=== PATIENT | female | born 1945 | race Caucasian/White ===

== ENCOUNTER 2023-03-23 16:20 | Inpatient (IN) | payer MEDICARE ==
[~2023-03-23] VITALS: Ht 175.3 cm; Wt 79.0 kg
[2023-03-23 22:00] VITALS: BP 121/51; PULSE 107; RESP 20; TEMP 97.5; O2SAT 96
[2023-03-23] MEDS ORDERED: furosemide 20 MG/2 ML vial IV ONE (23:40)
[2023-03-23] MEDS ORDERED: ondansetron/PF 4mg/2ml inj IV PRN (23:40)
[2023-03-23] MEDS ORDERED: potassium Cl 40MEQ/1/2NS 520ml 520 ML IV PRN (23:40)
[2023-03-23] MEDS ORDERED: magnesium Cl slow-release 64mg tablet PO PRN (23:40)
[2023-03-23] MEDS ORDERED: bisacodyl 10mg suppository rectal RC PRN (23:40)
[2023-03-23] MEDS ORDERED: acetaminophen 650mg rectal suppository RC PRN (23:40)
[2023-03-23] MEDS ORDERED: acetaminophen 325mg tablet PO PRN ×2 (23:40)
[2023-03-23] MEDS ORDERED: HYDROcodone/acetaminophen 5mg/325mg tablet PO PRN (23:40)
[2023-03-23] MEDS ORDERED: potassium Cl 20 mEq SR tablet PO PRN ×2 (23:40)
[2023-03-23] MEDS ORDERED: magnesium 4gm in 100ml NS 100 ML IV PRN (23:40)
[2023-03-23] MEDS ORDERED: mag hydrox/Alum hydrox/simeth 30ml oral suspension PO PRN (23:40)
[2023-03-23] MEDS ORDERED: magnesium 2GM in 50ml NS 50 ML IV PRN (23:40)
[2023-03-23] MEDS ORDERED: morphine 2 MG/ML inj. syringe IV PRN ×2 (23:40)
[2023-03-24 02:00] VITALS: BP 144/62; PULSE 104; RESP 20; TEMP 97.8; O2SAT 100
[2023-03-24] MEDS: normal saline 1000ml 1,000 ML IV SCH ×2 (03:00→15:46)
[2023-03-24] MEDS: temazepam 15mg capsule PO PRN ×2 (03:43→23:19)
[2023-03-24 06:00] VITALS: BP 118/71; PULSE 112; RESP 17; TEMP 98.2; O2SAT 95
[2023-03-24 06:46] LABS: BASOPHILS # (AUTO) 0.1 X10'3 (0-0.2); BASOPHILS % (AUTO) 0.3 % (0-1); EOSINOPHILS % (AUTO) 0.2 % (0-6); HEMATOCRIT 25.8 % (35.0-45.0); HEMOGLOBIN 8.5 g/dl (12.0-16.0); LYMPHOCYTES # (AUTO) 1.3 X10'3 (1.1-4.8); MEAN CORPUSCULAR HEMOGLOBIN 32.6 PG (27.0-31.0); MEAN CORPUSCULAR HGB CONC 32.9 g/dL (33.0-36.5); MEAN CORPUSCULAR VOLUME 99.3 FL (78-98); MEAN PLATELET VOLUME 8.3 FL (7.4-10.4); MONOCYTES # (AUTO) 1.4 X10'3 (0-0.9); MONOCYTES % (AUTO) 7.6 % (2-12); NEUTROPHILS # (AUTO) 16.1 X10'3 (1.8-7.7); NEUTROPHILS % (AUTO) 84.9 % (42-75); PLATELET COUNT 239 X10'3 (140-440); RED CELL DISTRIBUTION WIDTH 15.2 % (11.5-14.5); WHITE BLOOD COUNT 18.9 X10'3 (4.5-11.0)
[2023-03-24 07:07] LABS: ALANINE AMINOTRANSFERASE 14 U/L (12-78); ALBUMIN 2.7 G/DL (3.4-5.0); ALKALINE PHOSPHATASE 84 IU/L (46-116); ANION GAP 8 (8-16); ASPARTATE AMINO TRANSFERASE 13 U/L (10-37); BILIRUBIN,TOTAL 0.5 MG/DL (0.1-1.0); BLOOD UREA NITROGEN 20 MG/DL (7-18); BUN/CREATININE RATIO 17.5 (10.0-20.0); C-REACTIVE PROTEIN 3.55 MG/DL (0.0-0.5); CALCIUM 8.4 MG/DL (8.5-10.1); CHLORIDE 109 MMOL/L (99-107); CREATININE 1.14 MG/DL (0.40-0.90); GLUCOSE 78 MG/DL (70-104); MAGNESIUM 1.8 MG/DL (1.5-2.4); POTASSIUM 3.7 MMOL/L (3.5-5.1); SODIUM 147 MMOL/L (135-145); TOTAL CARBON DIOXIDE 29.6 MMOL/L (24-32); TOTAL PROTEIN 5.5 G/DL (6.4-8.2); eCRCL 43 ML/MIN; eGFR 46 ML/MIN
[2023-03-24] MEDS: K and/or MAG REPLACEMENT MC SCH ×2 (08:00→19:58)
[2023-03-24] MEDS: docusate sod 100mg capsule PO SCH ×2 (08:00→19:57)
[2023-03-24] MEDS ORDERED: VANCOmycin 1250MG/NS 250ml Bag 250 ML IV SCH (08:00)
[2023-03-24] MEDS ORDERED: CefTRIAXone 2gm/D5W 50ml BAG 50 ML IV SCH (08:00)
[2023-03-24] MEDS ORDERED: vancomycin/NS 1 GM ADD-VANTAGE 250 ML IV SCH (09:00)
[2023-03-24] MEDS: enoxaparin 40mg/0.4ml syringe SUBCUT SCH (10:27)
[2023-03-24 11:00] VITALS: BP 134/68
[2023-03-24 11:19] LABS: NUCLEATED RED BLOOD CELLS 1 /100WBC (0-0); TOTAL CELLS COUNTED 100
[2023-03-24 11:20] LABS: PLATELET ESTIMATE NORMAL
[2023-03-24 11:31] LABS: STOMATOCYTES 1+
[2023-03-24 11:32] LABS: HYPOCHROMASIA 1+
[2023-03-24] MEDS: piperacillin/tazo 3.375gm/50ml 50 ML IV SCH ×3 (11:48→23:23)
[2023-03-24 15:00] VITALS: BP 139/62; PULSE 101; RESP 18; TEMP 97.4; O2SAT 99
[2023-03-24 18:00] VITALS: BP 128/64; PULSE 100; RESP 18; TEMP 97.6; O2SAT 98
[2023-03-24 22:00] VITALS: BP 132/68; PULSE 100; RESP 18; TEMP 98; O2SAT 98
[2023-03-24] MEDS ORDERED: diatr meglu/diatrizoate 30ml oral sol.-(3 dose) bottle NG ONE (22:00)
[2023-03-24] MEDS: HYDROcodone/acetaminophen 10/325mg tab PO PRN (23:20)
[2023-03-25 02:00] VITALS: BP 129/67; PULSE 100; RESP 18; TEMP 97.8; O2SAT 98
[2023-03-25 06:06] VITALS: BP 138/64; PULSE 94; RESP 14; TEMP 97.7; O2SAT 98
[2023-03-25] MEDS: K and/or MAG REPLACEMENT MC SCH ×2 (08:00→20:00)
[2023-03-25] MEDS: enoxaparin 40mg/0.4ml syringe SUBCUT SCH (08:04)
[2023-03-25] MEDS: docusate sod 100mg capsule PO SCH ×2 (08:04→20:10)
[2023-03-25] MEDS: normal saline 1000ml 1,000 ML IV SCH ×2 (08:05→15:40)
[2023-03-25] MEDS: piperacillin/tazo 3.375gm/50ml 50 ML IV SCH ×3 (08:05→23:16)
[2023-03-25 12:44] LABS: BASOPHILS # (AUTO) 0.2 X10'3 (0-0.2); BASOPHILS % (AUTO) 1.1 % (0-1); EOSINOPHILS # (AUTO) 0.1 X10'3 (0-0.9); EOSINOPHILS % (AUTO) 0.6 % (0-6); HEMATOCRIT 26.3 % (35.0-45.0); HEMOGLOBIN 8.5 g/dl (12.0-16.0); LYMPHOCYTES # (AUTO) 0.9 X10'3 (1.1-4.8); LYMPHOCYTES % (AUTO) 6.5 % (21-51); MEAN CORPUSCULAR HEMOGLOBIN 33.1 PG (27.0-31.0); MEAN CORPUSCULAR HGB CONC 32.2 g/dL (33.0-36.5); MEAN CORPUSCULAR VOLUME 102.9 FL (78-98); MEAN PLATELET VOLUME 8.1 FL (7.4-10.4); MONOCYTES # (AUTO) 0.6 X10'3 (0-0.9); MONOCYTES % (AUTO) 4.4 % (2-12); NEUTROPHILS # (AUTO) 12.3 X10'3 (1.8-7.7); NEUTROPHILS % (AUTO) 87.4 % (42-75); PLATELET COUNT 169 X10'3 (140-440); RED BLOOD COUNT 2.56 X10'6 (4.20-5.60); WHITE BLOOD COUNT 14.1 X10'3 (4.5-11.0)
[2023-03-25 18:00] VITALS: BP 118/67; PULSE 102; RESP 18; TEMP 98; O2SAT 100
[2023-03-25] MEDS ORDERED: VANCOMYCIN LEVEL IV ONE (20:30)
[2023-03-25 20:54] LABS: ALANINE AMINOTRANSFERASE 9 U/L (12-78); ALBUMIN/GLOBULIN RATIO 0.7 (1.1-1.5); ALKALINE PHOSPHATASE 89 IU/L (46-116); ANION GAP 5 (8-16); ASPARTATE AMINO TRANSFERASE 12 U/L (10-37); BILIRUBIN,TOTAL 0.4 MG/DL (0.1-1.0); BLOOD UREA NITROGEN 18 MG/DL (7-18); BUN/CREATININE RATIO 16.2 (10.0-20.0); CHLORIDE 110 MMOL/L (99-107); CREATININE 1.11 MG/DL (0.40-0.90); GLUCOSE 88 MG/DL (70-104); MAGNESIUM 1.6 MG/DL (1.5-2.4); POTASSIUM 3.2 MMOL/L (3.5-5.1); SODIUM 148 MMOL/L (135-145); TOTAL CARBON DIOXIDE 33.1 MMOL/L (24-32); VANCOMYCIN,TROUGH 14.8 ug/mL (10.0-20.0); eCRCL 44 ML/MIN; eGFR 48 ML/MIN
[2023-03-25 22:00] VITALS: BP 124/62; PULSE 100; RESP 18; TEMP 97.8; O2SAT 100
[2023-03-25] MEDS: temazepam 15mg capsule PO PRN (22:47)
[2023-03-25] MEDS: HYDROcodone/acetaminophen 10/325mg tab PO PRN (22:47)
[2023-03-26 02:00] VITALS: BP 128/60; PULSE 105; RESP 18; TEMP 97.6; O2SAT 100
[2023-03-26] MEDS: normal saline 1000ml 1,000 ML IV SCH (05:00)
[2023-03-26 06:00] VITALS: BP 113/58; PULSE 68; RESP 20; TEMP 97.4; O2SAT 98
[2023-03-26] MEDS: docusate sod 100mg capsule PO SCH ×2 (07:27→20:41)
[2023-03-26] MEDS: K and/or MAG REPLACEMENT MC SCH ×2 (07:28→20:00)
[2023-03-26] MEDS: enoxaparin 40mg/0.4ml syringe SUBCUT SCH (07:28)
[2023-03-26] MEDS: piperacillin/tazo 3.375gm/50ml 50 ML IV SCH ×2 (07:28→17:14)
[2023-03-26 07:50] LABS: BASOPHILS % (AUTO) 0.2 % (0-1); EOSINOPHILS # (AUTO) 0.1 X10'3 (0-0.9); EOSINOPHILS % (AUTO) 0.6 % (0-6); HEMATOCRIT 26.5 % (35.0-45.0); HEMOGLOBIN 8.6 g/dl (12.0-16.0); LYMPHOCYTES # (AUTO) 0.9 X10'3 (1.1-4.8); LYMPHOCYTES % (AUTO) 8.1 % (21-51); MEAN CORPUSCULAR HEMOGLOBIN 32.8 PG (27.0-31.0); MEAN CORPUSCULAR HGB CONC 32.4 g/dL (33.0-36.5); MEAN CORPUSCULAR VOLUME 101.2 FL (78-98); MEAN PLATELET VOLUME 8.1 FL (7.4-10.4); MONOCYTES # (AUTO) 0.8 X10'3 (0-0.9); MONOCYTES % (AUTO) 7.6 % (2-12); NEUTROPHILS # (AUTO) 9.3 X10'3 (1.8-7.7); NEUTROPHILS % (AUTO) 83.5 % (42-75); PLATELET COUNT 179 X10'3 (140-440); RED BLOOD COUNT 2.62 X10'6 (4.20-5.60); RED CELL DISTRIBUTION WIDTH 15.4 % (11.5-14.5); WHITE BLOOD COUNT 11.2 X10'3 (4.5-11.0)
[2023-03-26 08:39] LABS: ALANINE AMINOTRANSFERASE 8 U/L (12-78); ALBUMIN/GLOBULIN RATIO 0.7 (1.1-1.5); ALKALINE PHOSPHATASE 85 IU/L (46-116); ANION GAP 6 (8-16); ASPARTATE AMINO TRANSFERASE 8 U/L (10-37); BILIRUBIN,TOTAL 0.4 MG/DL (0.1-1.0); BLOOD UREA NITROGEN 19 MG/DL (7-18); BUN/CREATININE RATIO 16.8 (10.0-20.0); CALCIUM 8.1 MG/DL (8.5-10.1); CHLORIDE 112 MMOL/L (99-107); CREATININE 1.13 MG/DL (0.40-0.90); GLUCOSE 94 MG/DL (70-104); MAGNESIUM 1.7 MG/DL (1.5-2.4); PHOSPHORUS 2.3 MG/DL (2.3-4.5); POTASSIUM 3.4 MMOL/L (3.5-5.1); SODIUM 148 MMOL/L (135-145); TOTAL CARBON DIOXIDE 30.1 MMOL/L (24-32); TOTAL PROTEIN 4.8 G/DL (6.4-8.2); eCRCL 44 ML/MIN; eGFR 47 ML/MIN
[2023-03-26 18:00] VITALS: BP_SYST 119; PULSE 103; RESP 20; TEMP 97.4; O2SAT 98
[2023-03-26] MEDS: HYDROcodone/acetaminophen 10/325mg tab PO PRN (20:40)
[2023-03-26] MEDS: temazepam 15mg capsule PO PRN (20:41)
[2023-03-26 22:00] VITALS: BP 117/58; PULSE 102; RESP 20; TEMP 97.1; O2SAT 98
[2023-03-27] MEDS: piperacillin/tazo 3.375gm/50ml 50 ML IV SCH ×4 (00:20→23:25)
[2023-03-27 02:00] VITALS: BP 122/62; PULSE 105; RESP 20; TEMP 97.6; O2SAT 98
[2023-03-27 06:06] VITALS: BP 158/78; PULSE 56; RESP 16; TEMP 98; O2SAT 98
[2023-03-27] MEDS: docusate sod 100mg capsule PO SCH ×2 (07:52→19:36)
[2023-03-27] MEDS: enoxaparin 40mg/0.4ml syringe SUBCUT SCH (07:55)
[2023-03-27] MEDS: K and/or MAG REPLACEMENT MC SCH ×2 (08:00→20:00)
[2023-03-27 09:05] LABS: BASOPHILS % (AUTO) 0.3 % (0-1); EOSINOPHILS # (AUTO) 0.1 X10'3 (0-0.9); EOSINOPHILS % (AUTO) 0.6 % (0-6); HEMATOCRIT 31.9 % (35.0-45.0); HEMOGLOBIN 10.1 g/dl (12.0-16.0); LYMPHOCYTES # (AUTO) 1.1 X10'3 (1.1-4.8); LYMPHOCYTES % (AUTO) 10.4 % (21-51); MEAN CORPUSCULAR HGB CONC 31.7 g/dL (33.0-36.5); MEAN PLATELET VOLUME 8.4 FL (7.4-10.4); NEUTROPHILS # (AUTO) 8.6 X10'3 (1.8-7.7); NEUTROPHILS % (AUTO) 79.7 % (42-75); PLATELET COUNT 158 X10'3 (140-440); RED BLOOD COUNT 3.07 X10'6 (4.20-5.60); RED CELL DISTRIBUTION WIDTH 16.4 % (11.5-14.5); WHITE BLOOD COUNT 10.8 X10'3 (4.5-11.0)
[2023-03-27 11:14] VITALS: BP 109/63; PULSE 117; RESP 21; TEMP 97.3; O2SAT 93
[2023-03-27 11:35] LABS: ALANINE AMINOTRANSFERASE 11 U/L (12-78); ALBUMIN 1.9 G/DL (3.4-5.0); ALBUMIN/GLOBULIN RATIO 0.6 (1.1-1.5); ALKALINE PHOSPHATASE 90 IU/L (46-116); ANION GAP 4 (8-16); ASPARTATE AMINO TRANSFERASE 11 U/L (10-37); BILIRUBIN,TOTAL 0.4 MG/DL (0.1-1.0); BLOOD UREA NITROGEN 19 MG/DL (7-18); BUN/CREATININE RATIO 17.4 (10.0-20.0); CALCIUM 8.3 MG/DL (8.5-10.1); CHLORIDE 111 MMOL/L (99-107); CREATININE 1.09 MG/DL (0.40-0.90); GLUCOSE 120 MG/DL (70-104); MAGNESIUM 1.6 MG/DL (1.5-2.4); PHOSPHORUS 2.1 MG/DL (2.3-4.5); POTASSIUM 4.4 MMOL/L (3.5-5.1); PREALBUMIN 12.9 MG/DL (19-36); SODIUM 147 MMOL/L (135-145); TOTAL CARBON DIOXIDE 31.7 MMOL/L (24-32); TOTAL PROTEIN 5.1 G/DL (6.4-8.2); eCRCL 45 ML/MIN; eGFR 49 ML/MIN
[2023-03-27 11:46] LABS: TOTAL CELLS COUNTED 100
[2023-03-27 11:49] LABS: ANISOCYTOSIS 1+; PLATELET ESTIMATE NORMAL; POLYCHROMASIA FEW
[2023-03-27] MEDS ORDERED: LOPERAMIDE 2 mg/15 ml oral solution UD PO PRN (13:10)
[2023-03-27 15:15] VITALS: BP 112/53; PULSE 120; RESP 20; TEMP 97.4; O2SAT 96
[2023-03-27 18:00] VITALS: BP 113/60; PULSE 117; RESP 18; TEMP 97.9; O2SAT 98
[2023-03-27] MEDS: HYDROcodone/acetaminophen 10/325mg tab PO PRN (19:36)
[2023-03-27] MEDS: temazepam 15mg capsule PO PRN (19:36)
[2023-03-27] MEDS: diatr meglu/diatrizoate 30ml oral sol.-(3 dose) bottle PO SCH (21:00)
[2023-03-27 22:00] VITALS: BP 96/55; PULSE 115; RESP 18; TEMP 97.6; O2SAT 93
[2023-03-28] VITALS (10 sets, daily range): BP systolic 109–132; BP diastolic 49–94; PULSE 93–112; RESP 13–29; TEMP 97.6–98.2; O2SAT 92–98
[2023-03-28] MEDS: diatr meglu/diatrizoate 30ml oral sol.-(3 dose) bottle PO SCH (07:00)
[2023-03-28] MEDS: piperacillin/tazo 3.375gm/50ml 50 ML IV SCH ×2 (07:24→16:00)
[2023-03-28] MEDS: docusate sod 100mg capsule PO SCH ×2 (07:30→20:13)
[2023-03-28] MEDS: K and/or MAG REPLACEMENT MC SCH ×2 (08:00→20:00)
[2023-03-28 08:02] LABS: BASOPHILS % (AUTO) 0.5 % (0-1); EOSINOPHILS # (AUTO) 0.1 X10'3 (0-0.9); EOSINOPHILS % (AUTO) 0.7 % (0-6); HEMATOCRIT 26.1 % (35.0-45.0); HEMOGLOBIN 8.4 g/dl (12.0-16.0); LYMPHOCYTES # (AUTO) 1.2 X10'3 (1.1-4.8); LYMPHOCYTES % (AUTO) 14.6 % (21-51); MEAN CORPUSCULAR HGB CONC 32.2 g/dL (33.0-36.5); MEAN CORPUSCULAR VOLUME 102.4 FL (78-98); MEAN PLATELET VOLUME 8.4 FL (7.4-10.4); MONOCYTES # (AUTO) 0.6 X10'3 (0-0.9); MONOCYTES % (AUTO) 6.8 % (2-12); NEUTROPHILS # (AUTO) 6.6 X10'3 (1.8-7.7); NEUTROPHILS % (AUTO) 77.4 % (42-75); PLATELET COUNT 136 X10'3 (140-440); RED BLOOD COUNT 2.55 X10'6 (4.20-5.60); RED CELL DISTRIBUTION WIDTH 16.2 % (11.5-14.5); WHITE BLOOD COUNT 8.5 X10'3 (4.5-11.0)
[2023-03-28 08:12] LABS: ALBUMIN 1.6 G/DL (3.4-5.0); ALBUMIN/GLOBULIN RATIO 0.5 (1.1-1.5); ALKALINE PHOSPHATASE 78 IU/L (46-116); ANION GAP 4 (8-16); ASPARTATE AMINO TRANSFERASE 9 U/L (10-37); BILIRUBIN,TOTAL 0.4 MG/DL (0.1-1.0); BLOOD UREA NITROGEN 20 MG/DL (7-18); BUN/CREATININE RATIO 20.2 (10.0-20.0); CALCIUM 7.9 MG/DL (8.5-10.1); CHLORIDE 111 MMOL/L (99-107); CREATININE 0.99 MG/DL (0.40-0.90); GLUCOSE 91 MG/DL (70-104); PHOSPHORUS 2.5 MG/DL (2.3-4.5); POTASSIUM 4.6 MMOL/L (3.5-5.1); SODIUM 143 MMOL/L (135-145); TOTAL PROTEIN 4.6 G/DL (6.4-8.2); eCRCL 50 ML/MIN; eGFR 54 ML/MIN
[2023-03-28 08:13] LABS: ALANINE AMINOTRANSFERASE < 6 U/L (12-78)
[2023-03-28] MEDS ORDERED: fentaNYL/PF 50MCG/1 ML 2ML syringe ONE (14:55)
[2023-03-28] MEDS ORDERED: midazolam 1 mg/ML 2ml injection ONE (14:55)
[2023-03-28] MEDS ORDERED: rocuronium 10mg/ml inj IV ONE (14:56)
[2023-03-28] MEDS ORDERED: propofol inj 20 ML IV ONE (14:56)
[2023-03-28] MEDS ORDERED: LIDOcaine 2% (20mg/ml) 5ml vial ONE (14:56)
[2023-03-28] MEDS ORDERED: hydrALAZINE 20mg/ml inj. IV PRN (15:00)
[2023-03-28] MEDS ORDERED: ringers solution, lacted 1,000 ML IV SCH (15:00)
[2023-03-28] MEDS ORDERED: ondansetron/PF 4mg/2ml inj IV PRN (15:00)
[2023-03-28] MEDS ORDERED: morphine 4 MG/ML inj SYRINge IV PRN (15:00)
[2023-03-28] MEDS ORDERED: morphine 2 MG/ML inj. syringe IV PRN (15:00)
[2023-03-28] MEDS ORDERED: labetalol 20mg/4ml (5mg/ml) syringe IV PRN (15:00)
[2023-03-28] MEDS ORDERED: fentaNYL/PF 50MCG/1 ML 2ML syringe IV PRN ×2 (15:00)
[2023-03-28] MEDS ORDERED: ondansetron/PF 4mg/2ml inj ONE (15:20)
[2023-03-28] MEDS ORDERED: dexamethasone sod phosphate 10mg/ml inj ONE (15:20)
[2023-03-28] MEDS ORDERED: sevoflurane 250ml liquid IH ONE (15:20)
[2023-03-28] MEDS ORDERED: ceFAZolin 1000mg inj ONE ×2 (15:39)
[2023-03-28] MEDS ORDERED: sugammadex 200mg/2ml injection IV ONE (15:43)
[2023-03-28] MEDS ORDERED: BUPIVAcaine 2.5mg/ml inj 50ml vial (contains preservative) ONE (15:51)
[2023-03-28] MEDS ORDERED: BUPIVAcaine 2.5mg/ml inj 50ml vial (contains preservative) SQ ONE (16:00)
[2023-03-28] MEDS: temazepam 15mg capsule PO PRN (20:12)
[2023-03-28] MEDS: HYDROcodone/acetaminophen 10/325mg tab PO PRN (20:13)
[2023-03-29] MEDS: piperacillin/tazo 3.375gm/50ml 50 ML IV SCH ×2 (00:33→07:38)
[2023-03-29 02:00] VITALS: BP 128/66; PULSE 100; RESP 16; TEMP 98.1; O2SAT 94
[2023-03-29 06:00] VITALS: BP 134/68; PULSE 98; RESP 18; TEMP 96.5; O2SAT 92
[2023-03-29] MEDS: docusate sod 100mg capsule PO SCH (08:00)
[2023-03-29] MEDS: K and/or MAG REPLACEMENT MC SCH (08:00)
[2023-03-29 11:00] VITALS: BP 127/64; PULSE 103; RESP 18; TEMP 97.7; O2SAT 100
[2023-03-29] MEDS: HYDROcodone/acetaminophen 10/325mg tab PO PRN (11:20)
[2023-03-29 12:20] VITALS: RESP 16
[2023-03-31 11:44] LABS: COCCIDIOIDES CF ANTIBODY <1:2 (<1:2)
== END 2023-03-29 16:00 | disposition short-term general hospital (02) | DRG 871 ==
LOC: PCU 3S 16:20 → UNDOADMIN 16:20 → PCU 3S 21:49
PROVIDERS: ADMIT Family Medicine; ATTEND Family Medicine
PROC: 0DH63UZ Insertion of Feeding Device into Stomach, Percutaneous Approach (ICD-10-PCS; principal; 2023-03-28 15:20)
DX: A41.9 Sepsis, unspecified organism (principal); E43 Unspecified severe protein-calorie malnutrition; I21.A1 Myocardial infarction type 2; J85.2 Abscess of lung without pneumonia; Z66 Do not resuscitate; E04.1 Nontoxic single thyroid nodule; I48.91 Unspecified atrial fibrillation; F41.9 Anxiety disorder, unspecified; F32.A Depression, unspecified; E03.9 Hypothyroidism, unspecified; R74.01 Elevation of levels of liver transaminase levels; E11.22 Type 2 diabetes mellitus with diabetic chronic kidney disease; I25.10 Atherosclerotic heart disease of native coronary artery without angina pectoris; E87.8 Other disorders of electrolyte and fluid balance, not elsewhere classified; J44.9 Chronic obstructive pulmonary disease, unspecified; I13.10 Hypertensive heart and chronic kidney disease without heart failure, with stage 1 through stage 4 chronic kidney disease, or unspecified chronic kidney disease; D53.9 Nutritional anemia, unspecified; N18.30 Chronic kidney disease, stage 3 unspecified; K66.0 Peritoneal adhesions (postprocedural) (postinfection); L89.152 Pressure ulcer of sacral region, stage 2; R13.10 Dysphagia, unspecified; Z87.891 Personal history of nicotine dependence; Z68.25 Body mass index [BMI] 25.0-25.9, adult; Z22.322 Carrier or suspected carrier of Methicillin resistant Staphylococcus aureus; Z74.01 Bed confinement status; I25.2 Old myocardial infarction
CPT/HCPCS: 36415; 71045; 71250; 80053; 80202; 83735; 84100; 84134; 84145; 85007; 85025; 85651; 86140; 92508; 92616; A4215; A4615; A4618; A6209; A6212; A6213; A6222; A6223; A6250; A6446; A6449; G0378; J0690; J0696; J1100; J1650; J1940; J2250; J2270; J2405; J2543; J2704; J3010; J3370; J3480; J3490; J7030; J7040; J7120